=== PATIENT | male | born 1950 | race African-American/Black ===

== ENCOUNTER 2021-04-07 17:16 | Inpatient (IN) ==
[2021-04-07 18:43] LABS: Albumin 3.3 G/DL (3.4-5.0); Basophils % 0.3 % (0.0-0.8); Bilirubin,Total 0.5 MG/DL (0.20-1.00); Calcium 10.2 MG/DL (8.5-10.1); Eosinophils # 0.1 10*3/uL (0.0-0.87); Hematocrit 43.5 VOL% (42.0-52.0); Hemoglobin 12.7 GM/DL (14.0-18.0); Immature Granulocytes % 0.3 %; Immature Granulocytes Absolute 0.04 #; Lymphocytes # 2.5 10*3/uL (1.4-4.0); Lymphocytes % 18.5 % (21.2-54.2); Mean Corpuscular HGB Conc 29.2 GM/DL (32-36); Mean Corpuscular Volume 81.3 FL (87-102); Mean Platelet Volume 11.1 FL (9.6-12.0); Monocytes % 11.3 % (1.7-12.7); Neutrophils % 68.6 % (38.7-73.9); Platelet Count 411 T/CUMM (130-400); Potassium 4.2 MMOL/L (3.5-5.1); Red Blood Count 5.35 MC/CUMM (3.8-5.5); Red Cell Distribution Width 18.1 % (9.3-17.3); Total Protein 9.9 G/DL (6.4-8.2); White Blood Count 13.4 T/CUMM (4-12)
[2021-04-07 18:44] LABS: Anisocytosis 1+; Hypochromasia 1+; Macrocytosis Slight; Microcytosis 1+; Platelet Estimate Normal
[2021-04-07] MEDS ORDERED: SODIUM CHLORIDE 0.9% 1,000 ML IV STA (19:00)
[2021-04-07 19:31] LABS: Bacteria,Urine Occasional /HPF (Few); Bilirubin,Urine Negative (Negative); Blood, Urine Small mg/dL (Negative); Glucose,Urine (UA) Negative (Negative); Hyaline Casts,Urine 1 /LPF (0-3); Ketones,Urine Negative (Negative); Mucus,Urine Occasional /LPF (Occasional); Nitrite,Urine Negative (Negative); Protein,Urine Negative; RBC,Urine 1 /HPF (0-4); Squamous Epithelial Cell,Urine Occasional /HPF (0-10); Transitional Epi Cells,Urine Occasional /HPF (<1); Urine Appearance Slightly Hazy (Clear); Urine Color Yellow (Yellow); Urine Specific Gravity 1.015 (1.001-1.035); Urine Urobilinogen < 2.0 EU/DL (0.2-1.0)
[2021-04-07] MEDS ORDERED: ONDANSETRON 4 MG/2 ML VIAL IV PRN (19:34)
[2021-04-07] MEDS ORDERED: DEXTROSE 50% 25 GM/50 ML VIAL IV PRN (19:34)
[2021-04-07] MEDS ORDERED: GLUCAGON 1 MG VIAL IM PRN (19:34)
[2021-04-07] MEDS ORDERED: INSULIN REGULAR 100 UNIT/ML SUBCUT STA (20:16)
[2021-04-07] MEDS: ENOXAPARIN 30 MG/0.3 ML SYRINGE SUBCUT SCH (20:52)
[2021-04-07] MEDS: DEXTROSE 5% NACL 0.45% 1,000 ML IV SCH (20:52)
[2021-04-07] MEDS: INSULIN REGULAR 100 UNIT/ML SUBCUT SCH (22:08)
[2021-04-08] MEDS: DEXTROSE 5% NACL 0.45% 1,000 ML IV SCH ×3 (04:39→21:50)
[2021-04-08 05:59] LABS: Calcium 9.6 MG/DL (8.5-10.1); Osmolality,Calculated 328.6 MOS/KG (273-304); Potassium 4.1 MMOL/L (3.5-5.1); Total Protein 8.4 G/DL (6.4-8.2)
[2021-04-08] MEDS: INSULIN REGULAR 100 UNIT/ML SUBCUT SCH ×4 (08:07→21:48)
[2021-04-08] MEDS ORDERED: INSULIN GLARGINE 100 UNIT/ML SUBCUT SCH (21:00)
[2021-04-08] MEDS: ENOXAPARIN 30 MG/0.3 ML SYRINGE SUBCUT SCH (21:59)
[2021-04-09] MEDS: ACETAMINOPHEN 650 MG SUPP RECTAL PRN ×2 (00:23→11:35)
[2021-04-09] MEDS ORDERED: SODIUM CHLORIDE 0.9% 500 ML IV ONE (02:15)
[2021-04-09] MEDS: DEXTROSE 5% NACL 0.45% 1,000 ML IV SCH (03:22)
[2021-04-09 05:46] LABS: Calcium 9.5 MG/DL (8.5-10.1); Potassium 4.1 MMOL/L (3.5-5.1)
[2021-04-09 05:47] LABS: Basophils % 0.4 % (0.0-0.8); Eosinophils # 0.2 10*3/uL (0.0-0.87); Hematocrit 36.7 VOL% (42.0-52.0); Immature Granulocytes % 0.4 %; Immature Granulocytes Absolute 0.04 #; Lymphocytes # 2.3 10*3/uL (1.4-4.0); Mean Corpuscular HGB Conc 28.6 GM/DL (32-36); Mean Corpuscular Volume 82.3 FL (87-102); Mean Platelet Volume 10.8 FL (9.6-12.0); Monocytes % 10.1 % (1.7-12.7); Neutrophils % 64.1 % (38.7-73.9); Red Blood Count 4.46 MC/CUMM (3.8-5.5); Red Cell Distribution Width 17.8 % (9.3-17.3); White Blood Count 10.2 T/CUMM (4-12)
[2021-04-09 05:48] LABS: Hemoglobin 10.5 GM/DL (14.0-18.0); Platelet Count 324 T/CUMM (130-400)
[2021-04-09 05:52] LABS: Hypochromasia 1+; Microcytosis 1+
[2021-04-09 08:34] LABS: Total Protein (Chem) 8.4 G/DL (6.4-8.3)
[2021-04-09] MEDS: INSULIN GLARGINE 100 UNIT/ML SUBCUT SCH ×3 (08:45→22:21)
[2021-04-09] MEDS: INSULIN REGULAR 100 UNIT/ML SUBCUT SCH ×4 (08:47→21:01)
[2021-04-09] MEDS: MEROPENEM 500 MG in SODIUM CHLORIDE 0.9% 100 ML IV SCH ×2 (08:47→17:36)
[2021-04-09 08:56] LABS: Free T4 (Free Thyroxine) 1.61 NG/DL (0.76-1.46)
[2021-04-09 10:17] LABS: Albumin (SPE) Rel % 47.6 %; Alpha 1 (SPE) 0.3 G/DL (0.1-0.4); Alpha 1 (SPE) Rel % 3.5 %; Alpha 2 (SPE) Rel % 11.4 %; Beta (SPE) 1.3 G/DL (0.5-1.1); Beta (SPE) Rel % 14.9 %; Gamma (SPE) Rel % 22.6 %
[2021-04-09] MEDS ORDERED: PROPRANOLOL 20 MG TABLET PO SCH (11:19)
[2021-04-09] MEDS ORDERED: atenoloL 25 MG TABLET PO SCH (11:20)
[2021-04-09] MEDS: METOPROLOL TARTRATE 5 MG/5 ML VIAL IV SCH ×2 (17:36→23:53)
[2021-04-09] MEDS ORDERED: CARBIDOPA/LEVODOPA 10-100 MG TABLET PO SCH (21:00)
[2021-04-09] MEDS: ENOXAPARIN 30 MG/0.3 ML SYRINGE SUBCUT SCH (22:21)
[2021-04-09] MEDS: CARBIDOPA/LEVODOPA 25-100 MG TABLET PO SCH ×2 (22:21→22:49)
[2021-04-09] MEDS: ZINC OXIDE 16% PASTE 57 GM TUBE TOP SCH (22:21)
[2021-04-09] MEDS: MEMANTINE 10 MG TABLET PO SCH ×2 (22:22→22:49)
[2021-04-09] MEDS: DEXTROSE 5% 1,000 ML IV SCH (22:32)
[2021-04-10] MEDS: MEROPENEM 500 MG in SODIUM CHLORIDE 0.9% 100 ML IV SCH ×2 (01:30→09:16)
[2021-04-10] MEDS: DEXTROSE 5% 1,000 ML IV SCH ×2 (02:09→14:27)
[2021-04-10] MEDS: ACETAMINOPHEN 650 MG SUPP RECTAL PRN ×2 (04:41→18:07)
[2021-04-10] MEDS: METOPROLOL TARTRATE 5 MG/5 ML VIAL IV SCH ×3 (05:30→18:07)
[2021-04-10] MEDS: INSULIN REGULAR 100 UNIT/ML SUBCUT SCH ×5 (08:18→22:44)
[2021-04-10 09:04] LABS: Basophils # 0.1 10*3/uL (0.0-0.2); Basophils % 0.5 % (0.0-0.8); Eosinophils # 0.1 10*3/uL (0.0-0.87); Eosinophils % 1.2 % (0.00-10.9); Hematocrit 37.2 VOL% (42.0-52.0); Immature Granulocytes % 0.5 %; Immature Granulocytes Absolute 0.06 #; Lymphocytes # 2.4 10*3/uL (1.4-4.0); Lymphocytes % 20.1 % (21.2-54.2); Mean Corpuscular HGB Conc 28.2 GM/DL (32-36); Mean Corpuscular Volume 81.9 FL (87-102); Mean Platelet Volume 10.9 FL (9.6-12.0); Monocytes % 11.6 % (1.7-12.7); Neutrophils % 66.1 % (38.7-73.9); Platelet Count 347 T/CUMM (130-400); Red Blood Count 4.54 MC/CUMM (3.8-5.5); Red Cell Distribution Width 17.8 % (9.3-17.3); White Blood Count 11.7 T/CUMM (4-12)
[2021-04-10 09:05] LABS: Hemoglobin 10.5 GM/DL (14.0-18.0)
[2021-04-10 09:07] LABS: Calcium 9.3 MG/DL (8.5-10.1); Osmolality,Calculated 326.9 MOS/KG (273-304); Potassium 4.1 MMOL/L (3.5-5.1)
[2021-04-10] MEDS: ZINC OXIDE 16% PASTE 57 GM TUBE TOP SCH ×2 (09:20→22:45)
[2021-04-10 09:53] LABS: Gamma (SPE) 1.9 G/DL (0.7-1.7)
[2021-04-10] MEDS: INSULIN GLARGINE 100 UNIT/ML SUBCUT SCH ×2 (09:58→22:43)
[2021-04-10] MEDS: CARBIDOPA/LEVODOPA 25-100 MG TABLET PO SCH ×4 (10:05→22:44)
[2021-04-10] MEDS: MEMANTINE 10 MG TABLET PO SCH ×3 (10:05→22:44)
[2021-04-10] MEDS: AMPICILLIN INJ 1,000 MG in SODIUM CHLORIDE 0.9% 100 ML IV SCH ×2 (14:28→17:54)
[2021-04-10] MEDS: ENOXAPARIN 30 MG/0.3 ML SYRINGE SUBCUT SCH (22:44)
[2021-04-11] MEDS: AMPICILLIN INJ 1,000 MG in SODIUM CHLORIDE 0.9% 100 ML IV SCH ×5 (00:34→23:36)
[2021-04-11] MEDS: METOPROLOL TARTRATE 5 MG/5 ML VIAL IV SCH ×5 (00:35→23:50)
[2021-04-11] MEDS: DEXTROSE 5% 1,000 ML IV SCH ×2 (04:19→18:39)
[2021-04-11 07:05] LABS: Calcium 9.4 MG/DL (8.5-10.1); Osmolality,Calculated 322.3 MOS/KG (273-304)
[2021-04-11 07:32] LABS: Basophils % 0.4 % (0.0-0.8); Eosinophils # 0.2 10*3/uL (0.0-0.87); Eosinophils % 2.1 % (0.00-10.9); Hematocrit 37.1 VOL% (42.0-52.0); Immature Granulocytes % 0.5 %; Immature Granulocytes Absolute 0.05 #; Lymphocytes % 19.6 % (21.2-54.2); Mean Corpuscular HGB Conc 28.8 GM/DL (32-36); Mean Corpuscular Volume 81.9 FL (87-102); Mean Platelet Volume 10.8 FL (9.6-12.0); Monocytes % 11.4 % (1.7-12.7); Platelet Count 300 T/CUMM (130-400); Red Blood Count 4.53 MC/CUMM (3.8-5.5); Red Cell Distribution Width 17.9 % (9.3-17.3); White Blood Count 10.2 T/CUMM (4-12)
[2021-04-11 07:36] LABS: Hemoglobin 10.7 GM/DL (14.0-18.0)
[2021-04-11] MEDS: CARBIDOPA/LEVODOPA 25-100 MG TABLET PO SCH ×3 (08:49→22:09)
[2021-04-11] MEDS: MEMANTINE 10 MG TABLET PO SCH ×2 (08:49→22:09)
[2021-04-11] MEDS: INSULIN GLARGINE 100 UNIT/ML SUBCUT SCH ×2 (08:50→22:14)
[2021-04-11] MEDS: ZINC OXIDE 16% PASTE 57 GM TUBE TOP SCH ×2 (08:50→22:11)
[2021-04-11] MEDS: INSULIN REGULAR 100 UNIT/ML SUBCUT SCH ×4 (09:11→22:10)
[2021-04-11] MEDS: ACETAMINOPHEN 650 MG SUPP RECTAL PRN (11:11)
[2021-04-11 12:29] LABS: Amorphous Crystals,Urine Occasional /HPF (Few); Bilirubin,Urine Negative (Negative); Blood, Urine Small mg/dL (Negative); Glucose,Urine (UA) Negative (Negative); Ketones,Urine Negative (Negative); Nitrite,Urine Negative (Negative); Protein,Urine Negative; RBC,Urine 1 /HPF (0-4); Squamous Epithelial Cell,Urine Occasional /HPF (0-10); Urine Appearance CLEAR (Clear); Urine Color Yellow (Yellow); Urine Specific Gravity 1.016 (1.001-1.035)
[2021-04-11 13:02] LABS: Basophils # 0.1 10*3/uL (0.0-0.2); Basophils % 0.6 % (0.0-0.8); Eosinophils # 0.2 10*3/uL (0.0-0.87); Eosinophils % 2.1 % (0.00-10.9); Hematocrit 35.9 VOL% (42.0-52.0); Hemoglobin 10.1 GM/DL (14.0-18.0); Immature Granulocytes % 0.4 %; Immature Granulocytes Absolute 0.04 #; Lymphocytes # 2.2 10*3/uL (1.4-4.0); Lymphocytes % 20.8 % (21.2-54.2); Mean Corpuscular HGB Conc 28.1 GM/DL (32-36); Mean Corpuscular Volume 82.7 FL (87-102); Mean Platelet Volume 10.5 FL (9.6-12.0); Neutrophils % 66.1 % (38.7-73.9); Platelet Count 304 T/CUMM (130-400); Red Blood Count 4.34 MC/CUMM (3.8-5.5); Red Cell Distribution Width 17.8 % (9.3-17.3); White Blood Count 10.5 T/CUMM (4-12)
[2021-04-11] MEDS ORDERED: ALBUTEROL/IPRATROPIUM 3 ML NEB RESP TX PRN (17:09)
[2021-04-11] MEDS ORDERED: IBUPROFEN 100 MG/5 ML UDCUP PO PRN (17:25)
[2021-04-11] MEDS: PANTOPRAZOLE 40 MG VIAL IV SCH (17:39)
[2021-04-11] MEDS: ENOXAPARIN 30 MG/0.3 ML SYRINGE SUBCUT SCH (22:10)
[2021-04-12] MEDS: DEXTROSE 5% 1,000 ML IV SCH ×3 (03:29→15:51)
[2021-04-12] MEDS: AMPICILLIN INJ 1,000 MG in SODIUM CHLORIDE 0.9% 100 ML IV SCH ×2 (06:18→12:43)
[2021-04-12] MEDS: METOPROLOL TARTRATE 5 MG/5 ML VIAL IV SCH ×3 (06:19→17:20)
[2021-04-12 07:25] LABS: Basophils % 0.5 % (0.0-0.8); Eosinophils # 0.3 10*3/uL (0.0-0.87); Eosinophils % 3.1 % (0.00-10.9); Hematocrit 33.1 VOL% (42.0-52.0); Hemoglobin 9.7 GM/DL (14.0-18.0); Immature Granulocytes % 0.6 %; Immature Granulocytes Absolute 0.05 #; Lymphocytes # 2.2 10*3/uL (1.4-4.0); Lymphocytes % 25.4 % (21.2-54.2); Mean Corpuscular HGB Conc 29.3 GM/DL (32-36); Mean Corpuscular Volume 81.9 FL (87-102); Mean Platelet Volume 11.3 FL (9.6-12.0); Monocytes % 9.6 % (1.7-12.7); Neutrophils % 60.8 % (38.7-73.9); Platelet Count 300 T/CUMM (130-400); Red Blood Count 4.04 MC/CUMM (3.8-5.5); Red Cell Distribution Width 17.9 % (9.3-17.3); White Blood Count 8.7 T/CUMM (4-12)
[2021-04-12 07:33] LABS: Calcium 9.3 MG/DL (8.5-10.1); Osmolality,Calculated 325.1 MOS/KG (273-304); Potassium 4.4 MMOL/L (3.5-5.1)
[2021-04-12] MEDS: INSULIN GLARGINE 100 UNIT/ML SUBCUT SCH ×2 (08:25→22:15)
[2021-04-12] MEDS: INSULIN REGULAR 100 UNIT/ML SUBCUT SCH ×4 (08:25→22:14)
[2021-04-12] MEDS: PANTOPRAZOLE 40 MG VIAL IV SCH (08:26)
[2021-04-12] MEDS: CARBIDOPA/LEVODOPA 25-100 MG TABLET PO SCH ×3 (08:27→22:04)
[2021-04-12] MEDS: MEMANTINE 10 MG TABLET PO SCH ×2 (08:27→22:03)
[2021-04-12] MEDS: ZINC OXIDE 16% PASTE 57 GM TUBE TOP SCH ×2 (08:27→22:04)
[2021-04-12] MEDS: traZODone 50 MG TABLET PO SCH (08:27)
[2021-04-12] MEDS ORDERED: LEVOFLOXACIN INJ 750 MG/150 ML PREMIX IV SCH (14:30)
[2021-04-12] MEDS: LEVOFLOXACIN INJ 500 MG/100 ML PREMIX IV SCH (15:46)
[2021-04-13] MEDS: METOPROLOL TARTRATE 5 MG/5 ML VIAL IV SCH ×4 (00:49→17:09)
[2021-04-13] MEDS: DEXTROSE 5% 1,000 ML IV SCH ×4 (03:42→19:14)
[2021-04-13 07:41] LABS: PT Patient Result 11.4 SECS (10.5-12.0)
[2021-04-13 07:42] LABS: Basophils % 0.5 % (0.0-0.8); Eosinophils # 0.3 10*3/uL (0.0-0.87); Hematocrit 32.5 VOL% (42.0-52.0); Hemoglobin 9.6 GM/DL (14.0-18.0); Immature Granulocytes % 0.5 %; Immature Granulocytes Absolute 0.04 #; Lymphocytes # 2.3 10*3/uL (1.4-4.0); Mean Corpuscular HGB Conc 29.5 GM/DL (32-36); Mean Corpuscular Volume 82.5 FL (87-102); Mean Platelet Volume 10.5 FL (9.6-12.0); Monocytes % 6.9 % (1.7-12.7); NRBC # 0.02 10*3/uL; Neutrophils % 59.1 % (38.7-73.9); Platelet Count 269 T/CUMM (130-400); Red Blood Count 3.94 MC/CUMM (3.8-5.5); Red Cell Distribution Width 17.9 % (9.3-17.3); White Blood Count 7.9 T/CUMM (4-12)
[2021-04-13 07:47] LABS: Calcium 9.4 MG/DL (8.5-10.1); Osmolality,Calculated 318.1 MOS/KG (273-304); Potassium 4.6 MMOL/L (3.5-5.1)
[2021-04-13] MEDS: INSULIN REGULAR 100 UNIT/ML SUBCUT SCH ×4 (07:53→21:47)
[2021-04-13] MEDS ORDERED: LACTATED RINGERS 1,000 ML IV SCH (08:00)
[2021-04-13] MEDS: ZINC OXIDE 16% PASTE 57 GM TUBE TOP SCH ×2 (08:03→21:48)
[2021-04-13] MEDS: SODIUM CHLORIDE 0.9% 1,000 ML IV SCH (08:04)
[2021-04-13] MEDS: INSULIN GLARGINE 100 UNIT/ML SUBCUT SCH ×2 (10:05→21:47)
[2021-04-13] MEDS: CARBIDOPA/LEVODOPA 25-100 MG TABLET PO SCH ×3 (10:06→21:47)
[2021-04-13] MEDS ORDERED: ceFAZolin 1,000 MG VIAL ONE (10:39)
[2021-04-13] MEDS ORDERED: propofoL 200 MG/20 ML VIAL IV ONE (10:48)
[2021-04-13] MEDS ORDERED: LIDOCAINE 2% 5 ML VIAL ONE (10:48)
[2021-04-13] MEDS: PANTOPRAZOLE 40 MG VIAL IV SCH (11:31)
[2021-04-13] MEDS: MEMANTINE 10 MG TABLET PO SCH ×2 (11:33→21:46)
[2021-04-13] MEDS: traZODone 50 MG TABLET PO SCH (11:33)
[2021-04-13] MEDS ORDERED: TUBERCULIN SKIN TEST 0.1 ML SYRINGE INTRADERM ONE (15:26)
[2021-04-13] MEDS: ACETAMINOPHEN 325 MG TABLET PO PRN (17:17)
[2021-04-14] MEDS: ACETAMINOPHEN 325 MG TABLET PO PRN (02:33)
[2021-04-14] MEDS: METOPROLOL TARTRATE 5 MG/5 ML VIAL IV SCH ×4 (05:26→17:01)
[2021-04-14] MEDS: SODIUM CHLORIDE 0.9% 1,000 ML IV SCH (06:30)
[2021-04-14 09:17] LABS: Basophils % 0.2 % (0.0-0.8); Eosinophils # 0.3 10*3/uL (0.0-0.87); Eosinophils % 3.2 % (0.00-10.9); Hematocrit 31.1 VOL% (42.0-52.0); Hemoglobin 8.8 GM/DL (14.0-18.0); Immature Granulocytes % 0.5 %; Immature Granulocytes Absolute 0.05 #; Lymphocytes # 2.8 10*3/uL (1.4-4.0); Lymphocytes % 29.6 % (21.2-54.2); Mean Corpuscular HGB Conc 28.3 GM/DL (32-36); Mean Corpuscular Volume 81.6 FL (87-102); Mean Platelet Volume 10.6 FL (9.6-12.0); Monocytes % 7.3 % (1.7-12.7); Neutrophils % 59.2 % (38.7-73.9); Platelet Count 283 T/CUMM (130-400); Red Blood Count 3.81 MC/CUMM (3.8-5.5); Red Cell Distribution Width 17.7 % (9.3-17.3); White Blood Count 9.6 T/CUMM (4-12)
[2021-04-14 09:27] LABS: Alanine Aminotransferase 32 U/L (16-61); Alkaline Phosphatase 133 U/L (45-117); Aspartate Amino Transferase 132 U/L (0-37); Bilirubin,Total < 0.39 MG/DL (0.20-1.00); Blood Urea Nitrogen 59 MG/DL (7-18); Calcium 8.9 MG/DL (8.5-10.1); Carbon Dioxide 24 MMOL/L (21-32); Estimated Glom Filtration Rate 52 ML/MIN; Glucose 265 MG/DL (74-106); Osmolality,Calculated 313.7 MOS/KG (273-304); Potassium 4.8 MMOL/L (3.5-5.1); Sodium 145 MMOL/L (136-145); Total Protein 7.5 G/DL (6.4-8.2)
[2021-04-14] MEDS: CARBIDOPA/LEVODOPA 25-100 MG TABLET PO SCH ×3 (09:43→22:25)
[2021-04-14] MEDS: PANTOPRAZOLE 40 MG VIAL IV SCH (09:44)
[2021-04-14] MEDS: traZODone 50 MG TABLET PO SCH (09:45)
[2021-04-14] MEDS: MEMANTINE 10 MG TABLET PO SCH ×2 (09:45→22:25)
[2021-04-14] MEDS: INSULIN REGULAR 100 UNIT/ML SUBCUT SCH ×4 (09:46→22:26)
[2021-04-14] MEDS: INSULIN GLARGINE 100 UNIT/ML SUBCUT SCH ×2 (09:46→22:26)
[2021-04-14] MEDS: ZINC OXIDE 16% PASTE 57 GM TUBE TOP SCH ×2 (09:47→22:25)
[2021-04-14] MEDS: DEXTROSE 5% 1,000 ML IV SCH ×2 (14:05→22:26)
[2021-04-14] MEDS: LEVOFLOXACIN INJ 500 MG/100 ML PREMIX IV SCH (15:31)
[2021-04-15] MEDS: METOPROLOL TARTRATE 5 MG/5 ML VIAL IV SCH ×4 (00:39→17:15)
[2021-04-15 05:45] LABS: Basophils % 0.3 % (0.0-0.8); Eosinophils # 0.4 10*3/uL (0.0-0.87); Eosinophils % 4.2 % (0.00-10.9); Hematocrit 31.5 VOL% (42.0-52.0); Immature Granulocytes % 0.6 %; Immature Granulocytes Absolute 0.06 #; Lymphocytes # 2.4 10*3/uL (1.4-4.0); Lymphocytes % 25.8 % (21.2-54.2); Mean Corpuscular HGB Conc 28.6 GM/DL (32-36); Mean Corpuscular Volume 82.2 FL (87-102); Mean Platelet Volume 10.8 FL (9.6-12.0); Monocytes % 6.1 % (1.7-12.7); Platelet Count 279 T/CUMM (130-400); Red Blood Count 3.83 MC/CUMM (3.8-5.5); Red Cell Distribution Width 17.7 % (9.3-17.3); White Blood Count 9.4 T/CUMM (4-12)
[2021-04-15] MEDS: DEXTROSE 5% 1,000 ML IV SCH (05:56)
[2021-04-15] MEDS: SODIUM CHLORIDE 0.9% 1,000 ML IV SCH (06:05)
[2021-04-15 06:14] LABS: Albumin 1.9 G/DL (3.4-5.0); Bilirubin,Total 0.6 MG/DL (0.20-1.00); Calcium 8.9 MG/DL (8.5-10.1); Osmolality,Calculated 310.7 MOS/KG (273-304); Potassium 4.7 MMOL/L (3.5-5.1); Total Protein 7.3 G/DL (6.4-8.2)
[2021-04-15 06:34] LABS: Hypochromasia 3+; Microcytosis 3+
[2021-04-15 06:35] LABS: Platelet Estimate Normal
[2021-04-15] MEDS: CARBIDOPA/LEVODOPA 25-100 MG TABLET PO SCH ×3 (08:55→22:17)
[2021-04-15] MEDS: MEMANTINE 10 MG TABLET PO SCH ×2 (08:55→22:17)
[2021-04-15] MEDS: PANTOPRAZOLE 40 MG VIAL IV SCH (08:56)
[2021-04-15] MEDS: INSULIN GLARGINE 100 UNIT/ML SUBCUT SCH (08:56)
[2021-04-15] MEDS: INSULIN REGULAR 100 UNIT/ML SUBCUT SCH ×4 (08:57→22:17)
[2021-04-15] MEDS: ZINC OXIDE 16% PASTE 57 GM TUBE TOP SCH ×2 (08:57→22:17)
[2021-04-15] MEDS: traZODone 50 MG TABLET PO SCH (08:58)
[2021-04-15] MEDS ORDERED: INSULIN GLARGINE 100 UNIT/ML SUBCUT SCH (21:00)
[2021-04-16] MEDS: METOPROLOL TARTRATE 5 MG/5 ML VIAL IV SCH ×4 (00:11→17:14)
[2021-04-16] MEDS: ACETAMINOPHEN 325 MG TABLET PO PRN ×2 (00:11→21:18)
[2021-04-16 06:16] LABS: Basophils % 0.3 % (0.0-0.8); Eosinophils # 0.4 10*3/uL (0.0-0.87); Eosinophils % 3.5 % (0.00-10.9); Hematocrit 32.5 VOL% (42.0-52.0); Hemoglobin 9.3 GM/DL (14.0-18.0); Immature Granulocytes % 0.9 %; Immature Granulocytes Absolute 0.09 #; Lymphocytes # 2.3 10*3/uL (1.4-4.0); Lymphocytes % 22.1 % (21.2-54.2); Mean Corpuscular HGB Conc 28.6 GM/DL (32-36); Mean Corpuscular Volume 82.1 FL (87-102); Mean Platelet Volume 10.8 FL (9.6-12.0); Monocytes % 7.3 % (1.7-12.7); NRBC # 0.02 10*3/uL; Neutrophils % 65.9 % (38.7-73.9); Platelet Count 315 T/CUMM (130-400); Red Blood Count 3.96 MC/CUMM (3.8-5.5); Red Cell Distribution Width 17.7 % (9.3-17.3); White Blood Count 10.3 T/CUMM (4-12)
[2021-04-16 06:22] LABS: Platelet Estimate Normal
[2021-04-16 06:23] LABS: Anisocytosis 2+; Hypochromasia Slight; Polychromasia Slight
[2021-04-16 06:39] LABS: Albumin 1.9 G/DL (3.4-5.0); Bilirubin,Total 0.6 MG/DL (0.20-1.00); Calcium 9.2 MG/DL (8.5-10.1); Osmolality,Calculated 311.6 MOS/KG (273-304); Potassium 5.4 MMOL/L (3.5-5.1); Total Protein 7.7 G/DL (6.4-8.2)
[2021-04-16] MEDS: SODIUM CHLORIDE 0.9% 1,000 ML IV SCH (07:05)
[2021-04-16] MEDS: INSULIN REGULAR 100 UNIT/ML SUBCUT SCH ×4 (10:08→21:17)
[2021-04-16] MEDS: MEMANTINE 10 MG TABLET PO SCH ×2 (10:10→21:18)
[2021-04-16] MEDS: PANTOPRAZOLE 40 MG VIAL IV SCH (10:10)
[2021-04-16] MEDS: traZODone 50 MG TABLET PO SCH (10:10)
[2021-04-16] MEDS: CARBIDOPA/LEVODOPA 25-100 MG TABLET PO SCH ×3 (10:10→21:18)
[2021-04-16] MEDS: ZINC OXIDE 16% PASTE 57 GM TUBE TOP SCH ×2 (10:11→21:18)
[2021-04-16] MEDS: AMPICILLIN INJ 1,000 MG in SODIUM CHLORIDE 0.9% 100 ML IV SCH ×2 (16:44→21:17)
[2021-04-16] MEDS: INSULIN GLARGINE 100 UNIT/ML SUBCUT SCH (21:17)
[2021-04-17] MEDS: METOPROLOL TARTRATE 5 MG/5 ML VIAL IV SCH ×5 (00:14→23:22)
[2021-04-17] MEDS: AMPICILLIN INJ 1,000 MG in SODIUM CHLORIDE 0.9% 100 ML IV SCH ×4 (03:44→21:44)
[2021-04-17] MEDS: SODIUM CHLORIDE 0.9% 1,000 ML IV SCH ×2 (05:35→09:31)
[2021-04-17 05:56] LABS: Albumin 1.9 G/DL (3.4-5.0); Bilirubin,Total 0.5 MG/DL (0.20-1.00); Calcium 9.5 MG/DL (8.5-10.1); Osmolality,Calculated 303.7 MOS/KG (273-304); Potassium 5.1 MMOL/L (3.5-5.1); Total Protein 7.8 G/DL (6.4-8.2)
[2021-04-17 06:10] LABS: Basophils % 0.4 % (0.0-0.8); Eosinophils # 0.4 10*3/uL (0.0-0.87); Eosinophils % 3.8 % (0.00-10.9); Hematocrit 32.9 VOL% (42.0-52.0); Immature Granulocytes % 1.1 %; Immature Granulocytes Absolute 0.11 #; Lymphocytes # 2.6 10*3/uL (1.4-4.0); Lymphocytes % 24.9 % (21.2-54.2); Mean Corpuscular HGB Conc 29.2 GM/DL (32-36); Mean Corpuscular Volume 81.4 FL (87-102); Mean Platelet Volume 11.1 FL (9.6-12.0); Monocytes % 8.1 % (1.7-12.7); NRBC # 0.03 10*3/uL; Neutrophils % 61.7 % (38.7-73.9); Platelet Count 361 T/CUMM (130-400); Red Blood Count 4.04 MC/CUMM (3.8-5.5); Red Cell Distribution Width 17.8 % (9.3-17.3); White Blood Count 10.4 T/CUMM (4-12)
[2021-04-17 06:11] LABS: Hemoglobin 9.6 GM/DL (14.0-18.0)
[2021-04-17] MEDS: CARBIDOPA/LEVODOPA 25-100 MG TABLET PO SCH ×3 (09:14→21:42)
[2021-04-17] MEDS: PANTOPRAZOLE 40 MG VIAL IV SCH (09:14)
[2021-04-17] MEDS: INSULIN REGULAR 100 UNIT/ML SUBCUT SCH ×4 (09:15→21:43)
[2021-04-17] MEDS: ZINC OXIDE 16% PASTE 57 GM TUBE TOP SCH ×2 (09:15→21:42)
[2021-04-17] MEDS: MEMANTINE 10 MG TABLET PO SCH ×2 (09:15→21:42)
[2021-04-17] MEDS ORDERED: traZODone 50 MG TABLET PO SCH (21:00)
[2021-04-17] MEDS: INSULIN GLARGINE 100 UNIT/ML SUBCUT SCH (21:43)
[2021-04-17] MEDS: ENOXAPARIN 30 MG/0.3 ML SYRINGE SUBCUT SCH (21:43)
[2021-04-18] MEDS: SODIUM CHLORIDE 0.9% 1,000 ML IV SCH ×3 (00:35→16:02)
[2021-04-18] MEDS: AMPICILLIN INJ 1,000 MG in SODIUM CHLORIDE 0.9% 100 ML IV SCH ×4 (02:49→22:03)
[2021-04-18] MEDS: METOPROLOL TARTRATE 5 MG/5 ML VIAL IV SCH ×3 (05:32→17:41)
[2021-04-18] MEDS: ACETAMINOPHEN 325 MG TABLET PO PRN (05:33)
[2021-04-18 06:07] LABS: Albumin 1.8 G/DL (3.4-5.0); Bilirubin,Total 0.6 MG/DL (0.20-1.00); Calcium 9.1 MG/DL (8.5-10.1); Osmolality,Calculated 307.7 MOS/KG (273-304); Potassium 5.2 MMOL/L (3.5-5.1); Total Protein 7.5 G/DL (6.4-8.2)
[2021-04-18 06:17] LABS: Basophils % 0.3 % (0.0-0.8); Eosinophils # 0.4 10*3/uL (0.0-0.87); Eosinophils % 4.1 % (0.00-10.9); Hematocrit 30.9 VOL% (42.0-52.0); Immature Granulocytes % 0.8 %; Immature Granulocytes Absolute 0.08 #; Lymphocytes # 2.4 10*3/uL (1.4-4.0); Lymphocytes % 24.8 % (21.2-54.2); Mean Corpuscular HGB Conc 28.5 GM/DL (32-36); Mean Corpuscular Volume 81.5 FL (87-102); Mean Platelet Volume 10.6 FL (9.6-12.0); Monocytes % 8.1 % (1.7-12.7); NRBC # 0.02 10*3/uL; Neutrophils % 61.9 % (38.7-73.9); Platelet Count 380 T/CUMM (130-400); Red Blood Count 3.79 MC/CUMM (3.8-5.5); Red Cell Distribution Width 17.9 % (9.3-17.3); White Blood Count 9.5 T/CUMM (4-12)
[2021-04-18 06:18] LABS: Hemoglobin 8.8 GM/DL (14.0-18.0)
[2021-04-18 06:31] LABS: Hypochromasia 2+; Polychromasia Slight
[2021-04-18 06:32] LABS: Microcytosis 2+; Ovalocytes Slight; Platelet Estimate Normal
[2021-04-18] MEDS: CARBIDOPA/LEVODOPA 25-100 MG TABLET PO SCH ×3 (09:18→22:04)
[2021-04-18] MEDS: INSULIN REGULAR 100 UNIT/ML SUBCUT SCH ×4 (09:19→22:03)
[2021-04-18] MEDS: MEMANTINE 10 MG TABLET PO SCH ×2 (09:19→22:04)
[2021-04-18] MEDS: ZINC OXIDE 16% PASTE 57 GM TUBE TOP SCH ×2 (09:20→22:03)
[2021-04-18] MEDS: PANTOPRAZOLE 40 MG VIAL IV SCH (09:20)
[2021-04-18] MEDS: FLUCONAZOLE 200 MG TABLET PO SCH (12:00)
[2021-04-18] MEDS: INSULIN GLARGINE 100 UNIT/ML SUBCUT SCH (22:04)
[2021-04-19] MEDS: METOPROLOL TARTRATE 5 MG/5 ML VIAL IV SCH ×5 (00:09→22:00)
[2021-04-19 05:02] LABS: PT Patient Result 11.2 SECS (10.5-12.0)
[2021-04-19 05:17] LABS: Albumin 1.7 G/DL (3.4-5.0); Bilirubin,Total 0.6 MG/DL (0.20-1.00); Osmolality,Calculated 302.4 MOS/KG (273-304); Potassium 4.9 MMOL/L (3.5-5.1); Total Protein 7.1 G/DL (6.4-8.2)
[2021-04-19 05:22] LABS: Basophils % 0.4 % (0.0-0.8); Eosinophils # 0.3 10*3/uL (0.0-0.87); Eosinophils % 4.1 % (0.00-10.9); Hemoglobin 8.4 GM/DL (14.0-18.0); Immature Granulocytes % 1.2 %; Immature Granulocytes Absolute 0.09 #; Lymphocytes # 2.3 10*3/uL (1.4-4.0); Lymphocytes % 28.8 % (21.2-54.2); Mean Corpuscular Volume 82.2 FL (87-102); Mean Platelet Volume 10.4 FL (9.6-12.0); Monocytes % 7.8 % (1.7-12.7); NRBC # 0.03 10*3/uL; Neutrophils % 57.7 % (38.7-73.9); Platelet Count 390 T/CUMM (130-400); Red Blood Count 3.65 MC/CUMM (3.8-5.5); Red Cell Distribution Width 17.7 % (9.3-17.3); White Blood Count 7.8 T/CUMM (4-12)
[2021-04-19] MEDS: SODIUM CHLORIDE 0.9% 1,000 ML IV SCH (07:52)
[2021-04-19] MEDS: PANTOPRAZOLE 40 MG VIAL IV SCH (08:54)
[2021-04-19] MEDS: AMPICILLIN INJ 1,000 MG in SODIUM CHLORIDE 0.9% 100 ML IV SCH ×4 (08:58→21:44)
[2021-04-19] MEDS: INSULIN REGULAR 100 UNIT/ML SUBCUT SCH ×4 (08:59→22:59)
[2021-04-19] MEDS: ZINC OXIDE 16% PASTE 57 GM TUBE TOP SCH ×2 (08:59→21:44)
[2021-04-19] MEDS: CARBIDOPA/LEVODOPA 25-100 MG TABLET PO SCH ×3 (09:00→21:45)
[2021-04-19] MEDS: FLUCONAZOLE 200 MG TABLET PO SCH (09:00)
[2021-04-19] MEDS: MEMANTINE 10 MG TABLET PO SCH ×2 (09:00→23:09)
[2021-04-19] MEDS: LACTATED RINGERS 1,000 ML IV SCH (11:18)
[2021-04-19] MEDS: DEXTROSE 5% NACL 0.45% 1,000 ML IV SCH ×2 (12:55→22:58)
[2021-04-19] MEDS ORDERED: LIDOCAINE 2% 5 ML VIAL ONE (14:26)
[2021-04-19] MEDS ORDERED: propofoL 200 MG/20 ML VIAL IV ONE (14:26)
[2021-04-19] MEDS ORDERED: ETOMIDATE 20 MG/10 ML VIAL IV ONE (14:26)
[2021-04-19] MEDS: INSULIN GLARGINE 100 UNIT/ML SUBCUT SCH (23:00)
[2021-04-20] MEDS: AMPICILLIN INJ 1,000 MG in SODIUM CHLORIDE 0.9% 100 ML IV SCH ×4 (04:23→21:42)
[2021-04-20] MEDS: METOPROLOL TARTRATE 5 MG/5 ML VIAL IV SCH ×4 (04:27→21:41)
[2021-04-20] MEDS: DEXTROSE 5% NACL 0.45% 1,000 ML IV SCH ×4 (06:17→23:58)
[2021-04-20 06:35] LABS: Albumin 1.8 G/DL (3.4-5.0); Bilirubin,Total 0.4 MG/DL (0.20-1.00); Calcium 8.9 MG/DL (8.5-10.1); Osmolality,Calculated 299.4 MOS/KG (273-304); Potassium 4.7 MMOL/L (3.5-5.1); Total Protein 7.4 G/DL (6.4-8.2)
[2021-04-20 06:54] LABS: Basophils % 0.2 % (0.0-0.8); Eosinophils # 0.4 10*3/uL (0.0-0.87); Eosinophils % 4.4 % (0.00-10.9); Hematocrit 29.5 VOL% (42.0-52.0); Hemoglobin 8.3 GM/DL (14.0-18.0); Immature Granulocytes Absolute 0.08 #; Lymphocytes # 2.3 10*3/uL (1.4-4.0); Lymphocytes % 27.8 % (21.2-54.2); Mean Corpuscular HGB Conc 28.1 GM/DL (32-36); Mean Corpuscular Volume 82.2 FL (87-102); Mean Platelet Volume 10.1 FL (9.6-12.0); Monocytes % 7.2 % (1.7-12.7); NRBC # 0.02 10*3/uL; Neutrophils % 59.4 % (38.7-73.9); Platelet Count 472 T/CUMM (130-400); Red Blood Count 3.59 MC/CUMM (3.8-5.5); Red Cell Distribution Width 17.7 % (9.3-17.3); White Blood Count 8.2 T/CUMM (4-12)
[2021-04-20 07:34] LABS: Platelet Estimate Normal
[2021-04-20 07:35] LABS: Anisocytosis 1+; Polychromasia Slight
[2021-04-20] MEDS: INSULIN REGULAR 100 UNIT/ML SUBCUT SCH ×4 (07:48→21:21)
[2021-04-20] MEDS: LACTATED RINGERS 1,000 ML IV SCH (08:31)
[2021-04-20] MEDS: ZINC OXIDE 16% PASTE 57 GM TUBE TOP SCH ×2 (10:06→21:43)
[2021-04-20] MEDS: CARBIDOPA/LEVODOPA 25-100 MG TABLET PO SCH ×3 (10:07→21:42)
[2021-04-20] MEDS: FLUCONAZOLE 200 MG TABLET PO SCH (10:07)
[2021-04-20] MEDS: MEMANTINE 10 MG TABLET PO SCH ×2 (10:07→21:42)
[2021-04-20] MEDS: PANTOPRAZOLE 40 MG VIAL IV SCH (10:08)
[2021-04-20] MEDS: INSULIN GLARGINE 100 UNIT/ML SUBCUT SCH (21:41)
[2021-04-20] MEDS: ACETAMINOPHEN 325 MG TABLET PO PRN (21:43)
[2021-04-21] MEDS: AMPICILLIN INJ 1,000 MG in SODIUM CHLORIDE 0.9% 100 ML IV SCH ×4 (02:16→21:20)
[2021-04-21] MEDS: METOPROLOL TARTRATE 5 MG/5 ML VIAL IV SCH ×4 (02:17→21:22)
[2021-04-21 04:37] LABS: Albumin 1.9 G/DL (3.4-5.0); Calcium 8.9 MG/DL (8.5-10.1); Osmolality,Calculated 290.1 MOS/KG (273-304); Potassium 4.4 MMOL/L (3.5-5.1); Total Protein 7.6 G/DL (6.4-8.2)
[2021-04-21 04:43] LABS: Basophils % 0.4 % (0.0-0.8); Eosinophils # 0.3 10*3/uL (0.0-0.87); Eosinophils % 3.9 % (0.00-10.9); Hematocrit 30.7 VOL% (42.0-52.0); Lymphocytes # 2.1 10*3/uL (1.4-4.0); Lymphocytes % 27.6 % (21.2-54.2); Mean Corpuscular Volume 82.5 FL (87-102); Mean Platelet Volume 9.9 FL (9.6-12.0); Monocytes % 6.5 % (1.7-12.7); Neutrophils % 60.8 % (38.7-73.9); Platelet Count 476 T/CUMM (130-400); Red Blood Count 3.72 MC/CUMM (3.8-5.5); Red Cell Distribution Width 17.8 % (9.3-17.3); White Blood Count 7.7 T/CUMM (4-12)
[2021-04-21 04:46] LABS: Hemoglobin 8.6 GM/DL (14.0-18.0)
[2021-04-21 04:50] LABS: Eosinophils 7 % (0-10); Hypochromasia 1+; Lymphocytes 22 % (20-55); Microcytosis 1+; Platelet Estimate Adequate; Segmented Neutrophils 67 % (50-85)
[2021-04-21] MEDS: DEXTROSE 5% NACL 0.45% 1,000 ML IV SCH ×2 (05:32→13:54)
[2021-04-21] MEDS: CARBIDOPA/LEVODOPA 25-100 MG TABLET PO SCH ×3 (10:06→21:22)
[2021-04-21] MEDS: FLUCONAZOLE 200 MG TABLET PO SCH (10:06)
[2021-04-21] MEDS: MEMANTINE 10 MG TABLET PO SCH ×2 (10:06→21:22)
[2021-04-21] MEDS: INSULIN REGULAR 100 UNIT/ML SUBCUT SCH ×4 (10:06→20:51)
[2021-04-21] MEDS: ZINC OXIDE 16% PASTE 57 GM TUBE TOP SCH ×2 (10:07→21:23)
[2021-04-21] MEDS: PANTOPRAZOLE 40 MG VIAL IV SCH (10:07)
[2021-04-21] MEDS: LACTATED RINGERS 1,000 ML IV SCH (10:07)
[2021-04-21] MEDS: ACETAMINOPHEN 650 MG SUPP RECTAL PRN (15:44)
[2021-04-21] MEDS: INSULIN GLARGINE 100 UNIT/ML SUBCUT SCH (21:22)
[2021-04-22] MEDS: DEXTROSE 5% NACL 0.45% 1,000 ML IV SCH ×5 (01:16→19:35)
[2021-04-22] MEDS: METOPROLOL TARTRATE 5 MG/5 ML VIAL IV SCH ×4 (03:41→20:19)
[2021-04-22] MEDS: AMPICILLIN INJ 1,000 MG in SODIUM CHLORIDE 0.9% 100 ML IV SCH ×4 (03:41→20:17)
[2021-04-22] MEDS: LACTATED RINGERS 1,000 ML IV SCH (08:09)
[2021-04-22] MEDS: INSULIN REGULAR 100 UNIT/ML SUBCUT SCH ×4 (09:04→19:59)
[2021-04-22] MEDS: MEMANTINE 10 MG TABLET PO SCH ×2 (09:04→20:19)
[2021-04-22] MEDS: CARBIDOPA/LEVODOPA 25-100 MG TABLET PO SCH ×3 (09:04→20:19)
[2021-04-22] MEDS: FLUCONAZOLE 200 MG TABLET PO SCH (09:04)
[2021-04-22] MEDS: PANTOPRAZOLE 40 MG VIAL IV SCH (09:04)
[2021-04-22] MEDS: ZINC OXIDE 16% PASTE 57 GM TUBE TOP SCH ×2 (09:05→20:19)
[2021-04-22] MEDS: ACETAMINOPHEN 325 MG TABLET PO PRN (16:57)
[2021-04-22] MEDS: INSULIN GLARGINE 100 UNIT/ML SUBCUT SCH (20:19)
[2021-04-23] MEDS: METOPROLOL TARTRATE 5 MG/5 ML VIAL IV SCH ×4 (03:01→20:54)
[2021-04-23] MEDS: AMPICILLIN INJ 1,000 MG in SODIUM CHLORIDE 0.9% 100 ML IV SCH ×4 (03:02→20:54)
[2021-04-23] MEDS: DEXTROSE 5% NACL 0.45% 1,000 ML IV SCH ×2 (04:49→05:13)
[2021-04-23 05:50] LABS: Basophils % 0.3 % (0.0-0.8); Eosinophils # 0.2 10*3/uL (0.0-0.87); Eosinophils % 3.4 % (0.00-10.9); Hematocrit 26.5 VOL% (42.0-52.0); Hemoglobin 7.5 GM/DL (14.0-18.0); Immature Granulocytes % 1.1 %; Immature Granulocytes Absolute 0.07 #; Lymphocytes # 1.8 10*3/uL (1.4-4.0); Lymphocytes % 29.4 % (21.2-54.2); Mean Corpuscular HGB Conc 28.3 GM/DL (32-36); Mean Corpuscular Volume 81.5 FL (87-102); Mean Platelet Volume 9.8 FL (9.6-12.0); Monocytes % 8.6 % (1.7-12.7); Neutrophils % 57.2 % (38.7-73.9); Platelet Count 489 T/CUMM (130-400); Red Blood Count 3.25 MC/CUMM (3.8-5.5); Red Cell Distribution Width 17.5 % (9.3-17.3); White Blood Count 6.2 T/CUMM (4-12)
[2021-04-23 06:14] LABS: Calcium 8.8 MG/DL (8.5-10.1); Osmolality,Calculated 281.5 MOS/KG (273-304); Potassium 4.7 MMOL/L (3.5-5.1)
[2021-04-23] MEDS: INSULIN REGULAR 100 UNIT/ML SUBCUT SCH ×4 (09:29→20:06)
[2021-04-23] MEDS: CARBIDOPA/LEVODOPA 25-100 MG TABLET PO SCH ×3 (09:36→20:53)
[2021-04-23] MEDS: MEMANTINE 10 MG TABLET PO SCH ×2 (09:36→20:53)
[2021-04-23] MEDS: FLUCONAZOLE 200 MG TABLET PO SCH (09:36)
[2021-04-23] MEDS: PANTOPRAZOLE 40 MG VIAL IV SCH (09:36)
[2021-04-23] MEDS: ACETAMINOPHEN 325 MG TABLET PO PRN (09:36)
[2021-04-23] MEDS: ZINC OXIDE 16% PASTE 57 GM TUBE TOP SCH ×2 (09:37→20:54)
[2021-04-23] MEDS: LACTATED RINGERS 1,000 ML IV SCH (13:28)
[2021-04-23] MEDS: levETIRAcetam LIQUID 100 MG/ML 30 ML/BOTTLE PO SCH (20:54)
[2021-04-23] MEDS: INSULIN GLARGINE 100 UNIT/ML SUBCUT SCH (20:56)
[2021-04-24] MEDS: METOPROLOL TARTRATE 5 MG/5 ML VIAL IV SCH ×2 (03:42→10:33)
[2021-04-24] MEDS: INSULIN REGULAR 100 UNIT/ML SUBCUT SCH ×2 (07:24→11:40)
[2021-04-24] MEDS: MEMANTINE 10 MG TABLET PO SCH (10:33)
[2021-04-24] MEDS: FLUCONAZOLE 200 MG TABLET PO SCH (10:33)
[2021-04-24] MEDS: PANTOPRAZOLE 40 MG VIAL IV SCH (10:33)
[2021-04-24] MEDS: CARBIDOPA/LEVODOPA 25-100 MG TABLET PO SCH (10:34)
[2021-04-24] MEDS: ZINC OXIDE 16% PASTE 57 GM TUBE TOP SCH (10:34)
[2021-04-24] MEDS: levETIRAcetam LIQUID 100 MG/ML 30 ML/BOTTLE PO SCH (10:48)
[2021-04-24 11:38] VITALS: BP 137/62
== END 2021-04-24 13:31 | DRG 682 ==
LOC: EDBD → EDUNIT# → N.ED 17:16 → N.EDINP 19:34 → SUATTDRO 19:34 → N.3E 20:49
PROVIDERS: ADMIT Internal Medicine; ATTEND Internal Medicine
PROC: EGDWPEG (ICD-10-PCS; 2021-04-19 11:35)